=== PATIENT | female | born 1990 | race African-American/Black ===

== ENCOUNTER 2016-02-14 23:13 | Emergency (ER) ==
[2016-02-14] MEDS ORDERED: PEN VK PO ONE (23:50)
[2016-02-14] MEDS ORDERED: NORCO-5 PO ONE (23:50)
--- NOTE | 2016-02-14 23:50 | PROVIDER DOCUMENTATION ---
HPI-EENT General <GerardYoshi mandujanokuldip Solorzano - Last Filed: 02/14/16 23:51> - General Source: patient - History of Present Illness-EENT General EENT Location: reports: dental Quality of Pain: reports: aching Onset/Duration: reports: 5 days ago Timing: reports: still present Prearrival Treatment: Initiated over the counter meds Associated Symptoms: reports: tooth pain Locality of Occurance: Home Similar Symptoms Previously?: No Recently seen or treated by another doctor?: No - Throat/Dental Throat/Dental Problem Symptoms: reports: toothache Recently seen a dentist or have an appointment?: No <Cidni Talavera - Last Filed: 02/15/16 00:38> - General Chief Complaint: Toothache Stated Complaint: TOOTHACHE Time Seen by Provider: 02/14/16 23:36 Allergies/Adverse Reactions: Patient Allergies Allergy/AdvReac Type Severity Reaction Status Date / Time banana Allergy ANAPHYLAXIS Verified 02/14/16 23:32 - History of Present Illness-EE General Nature of Presenting Problem: 25 year old F presents to the ED with a cc of dental pain x5 days. Pt states that oragel and ice help. Pain radiates into left ear and neck. (Cindi Talavera) Review of Systems - Adult - REVIEW OF SYSTEMS - ADULT Constitutional: denies: chills, fever Eyes: reports: no symptoms reported Ears, Nose, Mouth & Throat: reports: mouth/dental pain. denies: ear pain, throat pain Cardiovascular: denies: chest pain, palpitations Respiratory: reports: no symptoms reported Gastrointestinal: reports: no symptoms reported Genitourinary: reports: no symptoms reported Musculoskeletal: reports: no symptoms reported Integumentary: reports: no symptoms reported Neurological: reports: no symptoms reported Psychiatric: reports: no symptoms reported Endocrine: reports: no symptoms reported Hematologic/Lymphatic: reports: no symptoms reported Allergic/Immunologic: reports: no symptoms reported All Other Systems: Reviewed and Negative <Cindi Talavera - Last Filed: 02/15/16 00:38> Past History - Adult - PAST MEDICAL HISTORY-ADULT Review of Records: reports: Nursing Assessment Review, Medications Reviewed Major Childhood Illnesses: reports: denies history Other Conditions: reports: denies history - PRIOR SURGERIES/PROCEDURES Surgical/Procedure History: reports: other (ear) - IMMUNIZATION STATUS Childhood Immunizations: See Nurse Assessment Flu Vaccine: See Nurse Assessment - SOCIAL HISTORY Smoking: non-smoker Substance Use: none/never Alcohol Use Frequency: never <Cindi Talavera - Last Filed: 02/15/16 00:38> Physical Exam- EENT - Physical Exam EENT Initial Vital Signs Reviewed: Yes General Appearance: appears well, alert, no apparent distress Eye Exam: bilateral eye: normal inspection, PERRL, EOMI Ear Exam: bilateral ear: auricle normal, canal normal, TM normal Nasal Exam: normal inspection Throat Exam: pharynx normal, dental tenderness. negative: mandibular swelling, maxillary swelling, pharynx swelling Neck: non-tender, full range of motion, supple. negative: lymphadenopathy Respiratory: chest non-tender, lungs clear, normal breath sounds Cardiovascular: regular rate, rhythm, no edema Abdominal Exam: other (gravid uterus) Extremity: normal gait, normal inspection Neurologic: grossly normal, no motor/sensory deficits Psych/Mental Status: normal thought content, normal thought process <Mahogany Warner M. - Last Filed: 02/14/16 23:51> Progress <AlanaMahogany M. - Last Filed: 02/14/16 23:51> <Cindi Talavera - Last Filed: 02/15/16 00:38> - PLAN OF CARE/RESULTS Progress/Plan/Lab Results: Vital Signs Temp Pulse Resp BP Pulse Ox 02/14/16 23:29 98.6 F 103 H 20 113/75 98 banana Allergy (Verified 02/14/16 23:32) ANAPHYLAXIS No Home Medications 01/21/16 Orders Category Date Time Status Hydrocodone/APAP 5 mg/325 mg [[place]-5] Med 02/14/16 23:50 Once 1 each PO NOW ONE Penicillin V Potassium [Pen Vk] Med 02/14/16 23:50 Once 500 mg PO NOW ONE (Thiot,Mahogany M.) Departure - Departure Time of Disposition Order: 23:49 Certified Medical Emergency: Emergent <Mahogany Warner. - Last Filed: 02/14/16 23:51> <Cidni Talavera - Last Filed: 02/15/16 00:38> - Departure DIAGNOSIS: Pain, dental Disposition: HOME 01 Condition: Good Additional Instructions: must follow up with a dentist for definitive management of dental pain. ED Follow Up Instructions: You have been treated by a care provider in the Emergency Department. These instructions are being provided to you so you can have an understanding of how to care for yourself upon discharge. Upon discharge from the Emergency Department, you are responsible for making arrangements for follow-up care by a physician of your choice. Take all prescribed medications as directed. Return to the Emergency Department immediately for any new or worsening symptoms. You may call the Physician Referral phone number at [phone] to obtain a list of Physicians who are taking new patients. Prescriptions: Hydrocodone/APAP 7.5 mg/325 mg [[place]-7.5] 1 each PO Q6H PRN PRN #7 tablet PRN Reason: Pain Penicillin V Potassium 500 mg PO BID #20 tablet Referrals: None,PCP [Primary Care Provider] - Axel Webster, DMD [DENTISTRY] - Forms: Return to School/Parent Work Instructions: Acetaminophen; Hydrocodone tablets or capsules, Penicillin V tablets, Dental Pain, [id number] Attestation - Physician/ Mid-level Attestation Patient care was provided by Mid-level provider (WEDDING COORDINATOR/PA):: Yes Mid-level provider:: Mahogany Warner Mid-level documentation review:: The Mid-level provider documentation, treatment plan and medical decision making was reviewed by the physician who agrees with all treatment and medical decision making by the [facility]. <Mahoagny Warner - Last Filed: 02/14/16 23:51> - Scribe Verification/Attestation Scribe:: Cindi Talavera Acting as Scribe for:: Mahogany Warner Scribe documention review:: This chart was documented by a scribe and accurately reflects the service the provider performed and the decisions made by the provider. <Cindi Talavera - Last Filed: 02/15/16 00:38> Physician Attestation - Physician Attestation I, the provider, attest to the following statement:: Mahogany Warner Physician documentation Attestation:: This documentation recorded by the scribe accurately reflects the service I personally performed and the decisions made by me. <Cindi Talavera - Last Filed: 02/15/16 00:38>
[2016-02-15 00:13] VITALS: BP 127/75
== END 2016-02-15 00:12 | disposition home or self-care (01) ==
LOC: P.ED 23:13
DX: K08.89 Other specified disorders of teeth and supporting structures (principal); H92.02 Otalgia, left ear; M54.2 Cervicalgia
CPT/HCPCS: 99282

== ENCOUNTER 2016-06-03 12:11 | Inpatient (IN) ==
[2016-06-03] MEDS ORDERED: TYLENOL PO PRN (20:33)
[2016-06-03] MEDS ORDERED: STADOL IV PRN ×2 (20:33)
[2016-06-03] MEDS ORDERED: BRETHINE SUBQ PRN (20:33)
[2016-06-03] MEDS ORDERED: AMPICILLIN 2 GM/NS 2 GM/100 ML IVPB IV ONE (20:33)
[2016-06-03] MEDS ORDERED: ZOFRAN IV PRN (20:33)
[2016-06-03] MEDS ORDERED: AMBIEN PO PRN (20:33)
[2016-06-03] MEDS ORDERED: PEPCID PO PRN (20:33)
[2016-06-03] MEDS ORDERED: PEPCID IV PRN (20:33)
[2016-06-03] MEDS ORDERED: KEFZOL 1 GM/D5W 1 GM/50 ML IVPB IV PRN (20:33)
[2016-06-03] MEDS ORDERED: LR 3,000 ML ONE (20:41)
[2016-06-03] MEDS: LR 1,000 ML IV ONE (21:45)
[2016-06-03 22:00] LABS: URINE SOURCE VOIDED
[2016-06-03 22:09] LABS: BILIRUBIN URINE NEGATIVE (NEGATIVE); BLOOD URINE NEGATIVE (NEGATIVE); CLARITY SL. CLOUDY (CLEAR); COLOR YELLOW; GLUCOSE URINE NEGATIVE (NEGATIVE); LEUKOCYTES URINE TRACE (NEGATIVE); NITRITE URINE NEGATIVE (NEGATIVE); PH URINE 6.5; PROTEIN URINE NEGATIVE (NEGATIVE); SP GRAVITY URINE 1.015; UROBILINOGEN URINE NORMAL
[2016-06-03 22:20] LABS: BASO% 0.1 % (0.0-0.8); EOS% 1.1 % (0.0-10.0); HEMATOCRIT 37.6 % (37.0-47.0); HEMOGLOBIN 12.2 g/dL (12.0-16.0); IMM GRAN# 0.03 X1000 (0.0-0.04); IMM GRAN% 0.3 % (0.0-0.5); LYMPH# 2.48 X1000 (1.2-3.4); LYMPH% 27.6 % (20.5-51.1); MANUAL DIFF NEEDED? YES; MCH 21.2 PG (27-31); MCHC 32.4 g/dL (33-37); MCV 65.4 FL (81-99); MONO# 0.88 X1000 (0.11-0.59); MONO% 9.8 % (1.7-9.3); NEUT% 61.1 % (42.2-75.2); PLT 261 X1000 (130-400); RBC 5.75 XMIL (4.2-5.4)
[2016-06-03 22:45] LABS: LYMPHS 36 % (21-51)
[2016-06-03 22:46] LABS: POLYCHROM OCCASIONAL
[2016-06-03 22:47] LABS: HYPOCHROM 1+
[2016-06-03 22:48] LABS: TARGET CELLS OCCASIONAL
[2016-06-03] MEDS ORDERED: CYTOTEC PO ONE (23:00)
[2016-06-04] MEDS: AMPICILLIN 1 GM/NS 1 GM/50 ML IVPB IV SCH ×5 (01:45→17:39)
[2016-06-04] MEDS ORDERED: CYTOTEC PO SCH (03:00)
[2016-06-04] MEDS: STADOL IV PRN ×4 (04:12→12:57)
[2016-06-04] MEDS ORDERED: PITOCIN 30 UNITS/LR 30 UNITS/500 ML IV.SOLN IV SCH (07:00)
[2016-06-04] MEDS ORDERED: LR 2,000 ML ONE (07:25)
[2016-06-04] MEDS ORDERED: MARCAINE 0.25% PF INJ ONE (08:15)
[2016-06-04] MEDS ORDERED: FENTANYL-BUPIV-NS 2 MCG-0.1% 200 ML EPIDURAL ONE (09:00)
[2016-06-04] MEDS ORDERED: FENTANYL-BUPIV-NS 2 MCG-0.1% 200 ML EPIDURAL PRN (15:19)
[2016-06-04] MEDS ORDERED: MARCAINE 0.25% PF INJ PRN (15:20)
[2016-06-04] MEDS: LR 1,000 ML IV ONE (15:47)
[2016-06-04] MEDS ORDERED: NESACAINE-MPF 3% ONE (16:45)
[2016-06-04] MEDS ORDERED: ZOFRAN ODT PO PRN ×2 (17:27→21:23)
[2016-06-04] MEDS ORDERED: ZOFRAN IV PRN ×4 (17:27→21:23)
[2016-06-04] MEDS ORDERED: NARCAN INJ PRN ×2 (17:27→21:23)
[2016-06-04] MEDS ORDERED: BENADRYL IV PRN ×2 (17:27→21:23)
[2016-06-04] MEDS ORDERED: BICITRA PO ONE (17:30)
[2016-06-04] MEDS ORDERED: PEPCID IV ONE (17:30)
[2016-06-04] MEDS ORDERED: REGLAN IV ONE (17:30)
[2016-06-04] MEDS ORDERED: PITOCIN ONE (18:21)
[2016-06-04] MEDS ORDERED: FENTANYL ONE (18:21)
[2016-06-04] MEDS ORDERED: PITOCIN 20 UNITS/LR 20 UNITS/1,000 ML IV.SOLN ONE (18:22)
[2016-06-04] MEDS ORDERED: XYLOCAINE-MPF 2% ONE (18:22)
[2016-06-04] MEDS ORDERED: DURAMORPH ONE (18:22)
[2016-06-04] MEDS ORDERED: NEO-SYNEPHRINE ONE (20:06)
[2016-06-04] MEDS ORDERED: TORADOL ONE (20:18)
[2016-06-04] MEDS ORDERED: AMBIEN PO PRN (20:43)
[2016-06-04] MEDS ORDERED: BOOSTRIX VACCINE IM ONE (20:43)
[2016-06-04] MEDS ORDERED: PITOCIN IM PRN (20:43)
[2016-06-04] MEDS ORDERED: M-M-R II VACCINE SUBQ ONE (20:43)
[2016-06-04] MEDS ORDERED: PERCOCET-5 PO PRN (20:43)
[2016-06-04] MEDS ORDERED: DULCOLAX PR PRN (20:43)
[2016-06-04] MEDS ORDERED: CYTOTEC PO PRN (20:43)
[2016-06-04] MEDS ORDERED: MYLICON PO PRN (20:43)
[2016-06-04] MEDS ORDERED: PHENERGAN IM PRN (20:43)
[2016-06-04] MEDS ORDERED: HYDROXYZINE PO PRN (20:43)
[2016-06-04] MEDS ORDERED: HYDROXYZINE IM PRN (20:43)
[2016-06-04] MEDS ORDERED: PITOCIN 20 UNITS/LR 20 UNITS/1,000 ML IV.SOLN IV ONE (20:43)
[2016-06-04] MEDS ORDERED: DILAUDID IV PRN (21:25)
[2016-06-04] MEDS ORDERED: TORADOL IV PRN (21:25)
[2016-06-04] MEDS: PITOCIN 10 UNITS/LR 10 UNIT/1,000 ML IV.SOLN IV SCH (23:59)
--- NOTE | 2016-06-05 00:20 | HISTORY AND PHYSICAL ---
CHIEF COMPLAINT: Intrauterine at 40+ 5 weeks, induction of labor, maternal exhaustion, remote from delivery. HISTORY OF PRESENT ILLNESS: This is a 26-year-old G1, with intrauterine at 40+5 weeks by a 11+4 week ultrasound, EDC 05/30/2016, who presented yesterday evening for elective induction of labor after receiving Cytotec, but with Pitocin the patient had no significant cervical change. Further cervical ripening was attempted using intracervical Carlisle catheter after epidural placement. No significant dilation was noted. However, patient requested the catheter be removed prior to spontaneous expulsion. At that time, the patient was requesting a primary low transverse section secondary to exhaustion and pain. Patient's course has been uncomplicated. OBSTETRICAL HISTORY: G1, current. GYNECOLOGIC HISTORY: Denies sexually transmitted infections or abnormal Paps. PAST MEDICAL HISTORY: Denies. PAST SURGICAL HISTORY: Significant for tympanic membrane repair at age 3. MEDICATIONS: vitamins. ALLERGIES: Bananas. SOCIAL HISTORY: Denies alcohol, tobacco, or illicit drug use. FAMILY HISTORY: Significant for diabetes, hypertension, heart disease, breast cancer, as well as lung cancer. REVIEW OF SYSTEMS: Negative. The patient denies fevers, chills, nausea, vomiting. She notes good movement. No loss of fluid. No vaginal bleeding. No chest pain. No shortness of breath. PHYSICAL EXAMINATION: A well-developed, well-nourished female, in no acute distress. HEENT: Pupils equally round, reactive to light. Extraocular muscles intact. CHEST: Clear to auscultation bilaterally. CARDIOVASCULAR: Regular rate and rhythm. No murmurs, rubs, or gallops. ABDOMEN: Soft, nontender, gravid. EXTREMITIES: No clubbing, cyanosis, or edema. SKIN: No focal lesions. NEUROLOGIC: No focal deficits. ASSESSMENT AND PLAN: 1. Intrauterine at 40+5 weeks. 2. Induction of labor. 3. Maternal exhaustion/pain, remote from delivery. The patient requested a primary low transverse section, quoting the pain is "too much to handle." Given lack of progress with regards to cervical dilation and the patient's level of pain, we will proceed forward with primary low transverse section. The patient was counseled that she is at increased risk of bleeding, infection, as well as injury to bowel and bladder, and at increased risk for placental abnormalities in subsequent pregnancies. The patient states that she understands these risks, along with increased recovery time when compared with vaginal delivery. She would like to proceed forward. cc: Holden Alicia MD
--- NOTE | 2016-06-05 01:08 | OPERATIVE NOTE ---
PROCEDURE DATE: 06/04/2016 PREOPERATIVE DIAGNOSIS: Intrauterine at 40+5 weeks, induction of labor, maternal exhaustion and pain: remote from delivery. POSTOPERATIVE DIAGNOSIS: Intrauterine at 40+5 weeks, induction of labor, maternal exhaustion and pain: remote from delivery. PROCEDURE PERFORMED: Primary low transverse section. SURGEON: Dr. Alicia. ANESTHESIA: Dr. Rutledge. FINDINGS: Normal uterus, ovaries, and bilateral fallopian tubes. COMPLICATIONS: None apparent. ESTIMATED BLOOD LOSS: 700 mL. SPECIMENS REMOVED: Placenta, cord blood. OPERATIVE COURSE: After the patient was identified and consents reviewed, spinal anesthesia was administered without complication. Patient was placed on the operative table in the dorsal supine position with a leftward tilt. Abdomen was prepped and draped in a normal sterile fashion. A Pfannenstiel skin incision was made and carried through to the underlying layer of fascia. This was extended laterally with Teresa scissors. The superior portion of the fascial incision was grasped with Ange clamps, elevated, and the underlying rectus muscles were dissected off with Teresa scissors. Inferior portion was performed in a similar manner. The rectus muscles were then identified and in the midline. The peritoneum was identified and entered bluntly. A bladder blade was then inserted. A low transverse hysterotomy was made. The infant was found to be in cephalic presentation. Infant delivered atraumatically. Nose and mouth were bulb suctioned. Cord was clamped and cut. handed off to the awaiting nursing staff. The placenta was then manually extracted. The uterus was exteriorized and cleaned of all clots and debris. The hysterotomy was repaired with 0 chromic in a running, locked fashion. A 2nd and 3rd figure-eight suture was needed at the lateral margins of the hysterotomy. Once adequate hemostasis was noted, the uterus was returned to the intraperitoneal space. Attention was returned again to the hysterotomy, where adequate hemostasis noted. Surgifoam was then used to ensure further hemostasis. The peritoneum was then reapproximated using 0 chromic. The subcutaneous tissue was closed with plain gut suture. The skin was closed with 4-0 Biosyn, as well as Dermabond. Patient tolerated the procedure well. She has taken to the recovery room afterwards in stable condition. cc: Holden Alicia MD
[2016-06-05] MEDS: AMPICILLIN 1 GM/NS 1 GM/50 ML IVPB IV SCH (01:41)
[2016-06-05] MEDS: PERICOLACE PO SCH ×2 (01:42→20:32)
[2016-06-05] MEDS: MYLICON PO SCH ×5 (01:42→20:32)
[2016-06-05] MEDS: TORADOL IV SCH ×3 (02:42→14:33)
[2016-06-05 05:56] LABS: HEMATOCRIT 33.4 % (37.0-47.0); MCH 21.8 PG (27-31); MCHC 32.9 g/dL (33-37); MCV 66.1 FL (81-99); MPV 10.6 FL (7.4-10.4); RBC 5.05 XMIL (4.2-5.4)
[2016-06-05] MEDS: PERCOCET-10 PO PRN ×4 (07:29→22:35)
--- NOTE | 2016-06-05 10:25 | PROGRESS NOTE ---
DATE: 06/05/2016 She is postop day 1 for a primary low transverse section for a failed induction of labor. Pulse rates are in the 100s. Otherwise, vitals are stable. She communicates no complaints. She is tolerating her breakfast. Her Carlisle is removed. She anticipates getting up and taking a shower. Her vital signs are stable, as mentioned. Neck is supple. Lungs are clear. Heart has regular sinus rhythm. Abdomen is distended. Incision is dry and intact. There is +2 lower extremity edema. Hemoglobin 11. We will continue routine and postoperative care. Anticipate discharge tomorrow or the next day due to the late delivery. cc: MD Holden Pendleton MD
[2016-06-05] MEDS ORDERED: LR 1,000 ML IV SCH (20:43)
[2016-06-05] MEDS: MOTRIN PO PRN (20:58)
[2016-06-05] MEDS: PITOCIN 10 UNITS/LR 10 UNIT/1,000 ML IV.SOLN IV SCH (22:04)
[2016-06-06] MEDS: PERCOCET-10 PO PRN ×4 (02:43→23:35)
[2016-06-06] MEDS: MOTRIN PO PRN ×3 (07:37→23:35)
[2016-06-06] MEDS: MYLICON PO SCH ×4 (09:10→21:01)
[2016-06-06] MEDS: PERICOLACE PO SCH (20:32)
[2016-06-07] MEDS: PERCOCET-10 PO PRN ×2 (04:09→08:33)
[2016-06-07] MEDS: MOTRIN PO PRN (08:32)
[2016-06-07] MEDS: MYLICON PO SCH (08:33)
[2016-06-07 08:38] VITALS: BP 121/72
--- NOTE | 2016-06-07 13:47 | DISCHARGE SUMMARY ---
ADMISSION DATE: 06/03/2016 DISCHARGE DATE: 06/07/2016 ADMITTING DIAGNOSIS: Intrauterine at 40 weeks 5 days. DISCHARGE DIAGNOSIS: Status post primary section. HISTORY OF PRESENT ILLNESS: Patient is a 26-year-old G1 who presented with intrauterine at 40 weeks and 5 days for induction of labor. However patient with significant pain and exhaustion requesting primary abdominal delivery. So, the decision was made to proceed for primary C section. Please see operative report for full details. Postoperatively patient was transferred to the floor for routine postoperative care. On postop day #1, Carlisle catheter was discontinued. Patient demonstrated the ability to void. Hematocrit returned to 33.4 and on postop day #3 the patient was tolerating a regular diet, ambulating without difficulty, and was felt to be stable for discharge home. DISCHARGE DISPOSITION: The patient is discharged home. PRIMARY PROCEDURE: Primary low segment transverse section. Patient to follow up in 1 week for postop visit. cc: MD Holden Friedman MD
== END 2016-06-07 11:50 | disposition home or self-care (01) ==
LOC: P.LD 20:12 → P.WC 06-04 23:28
PROVIDERS: ADMIT Obstetrics & Gynecology; ATTEND Obstetrics & Gynecology